=== PATIENT | male | born 1970 | race Caucasian/White ===

== ENCOUNTER 2016-04-25 09:44 | Emergency (ER) | payer SELFPAY | END 2016-04-25 11:20 | disposition left against medical advice (07) | LOC: ER 09:44 | DX: R42 Dizziness and giddiness (principal); Z48.02 Encounter for removal of sutures; Z53.21 Procedure and treatment not carried out due to patient leaving prior to being seen by health care provider | CPT/HCPCS: 80048; 81001; 83735; 84484; 85025; 85610; 85730; 93005 ==